=== PATIENT | female | born 1960 | race Caucasian/White ===

== ENCOUNTER 2017-02-27 07:29 | Day surgery (SDC) | payer BC ==
[~2017-02-27 07:29] MED LIST: ACET500CAP PO; ADVAIR250 INH; CHLORZOXAZON500 MG OR; COZAAR100 MG PO; CYMBALTA30 PO; EFFEX75 PO; EFFEXOR XR150 MG PO; EFFEXXR75 PO; ESTROVEN PO; EVAMIST1.53 MG TD; FOSAMAX70 MG PO; HYDROCHLOROT25 MG PO; LITHOBID3 PO; MIRAPEX250 PO; MOTRIN IB200 MG PO; NEUR100 PO; NEUR400 PO; NORCO1 TA1 PO; P10 PO; PREDNISONE2.5 MG PO; PRILOSEC OTC20 MG PO; PRILOSEC40 MG PO; PRIN5 PO; PROAIR HFA INH; PROBIOTIC PO; PROZAC PO; QVAR80 MCG INH; SPIRO25 PO; TOPAMAX100 PO; TRILEP300 PO; VITAMIN D31000 UNIT PO; XANAX1 MG PO; [UNRECOGNIZED DRUG - OTHER] PO
== END 2017-02-27 23:59 | disposition home or self-care (01) ==
LOC: SDC 07:29
PROVIDERS: Orthopaedic Surgery
PROC: 3E0R3BZ Introduction of Anesthetic Agent into Spinal Canal, Percutaneous Approach (ICD-10-PCS; 2017-02-27)
PROC: B01BYZZ Fluoroscopy of Spinal Cord using Other Contrast (ICD-10-PCS; 2017-02-27)
PROC: 3E0R33Z Introduction of Anti-inflammatory into Spinal Canal, Percutaneous Approach (ICD-10-PCS; principal; 2017-02-27 09:00)
DX: M54.16 Radiculopathy, lumbar region (principal); Z88.2 Allergy status to sulfonamides; Z88.5 Allergy status to narcotic agent; Z88.1 Allergy status to other antibiotic agents; Z88.8 Allergy status to other drugs, medicaments and biological substances; Z79.899 Other long term (current) drug therapy; Z98.890 Other specified postprocedural states; Z98.51 Tubal ligation status; Z90.89 Acquired absence of other organs; Z90.49 Acquired absence of other specified parts of digestive tract; Z90.710 Acquired absence of both cervix and uterus
CPT/HCPCS: J1040; J2250; J3010; Q9967